=== PATIENT | male | born 1975 | race Caucasian/White ===

== ENCOUNTER 2025-01-19 10:12 | Inpatient (IN) | payer MEDICARE, MEDICAID ==
[~2025-01-19] VITALS: Ht 177.8 cm; Wt 62.6 kg
[2025-01-19] MEDS ORDERED: DULCOLAX5 M1 PO (12:17)
[2025-01-19] MEDS ORDERED: TYLENOL325 M2 PO (12:17)
[2025-01-19] MEDS ORDERED: BUCAPSOL7.5 MG PO (12:18)
[2025-01-19] MEDS ORDERED: PULMICORT0.5 MG/21 NEB (12:18)
[2025-01-19] MEDS ORDERED: CALCITRIOL0.5 MCG PO (12:19)
[2025-01-19] MEDS ORDERED: ZYRTEC10 M2 PO (12:21)
[2025-01-19] MEDS ORDERED: CALCIUM500 M1 PO (12:21)
[2025-01-19] MEDS ORDERED: VITAMIN D325 MC1 PO (12:22)
[2025-01-19] MEDS ORDERED: AUSTEDO XR12 MG PO (12:23)
[2025-01-19] MEDS ORDERED: DOXYCYCLINE50 M2 PO (12:29)
[2025-01-19] MEDS ORDERED: HEARTBURN RELIE20 MG PO (12:30)
[2025-01-19] MEDS ORDERED: FENOFIBRATE MIC67 MG PO (12:30)
[2025-01-19] MEDS ORDERED: ALLERGY RELIE15.8 ML NAS (12:34)
[2025-01-19] MEDS ORDERED: HYDROXYZINE PAM25 M1 PO (12:39)
[2025-01-19] MEDS ORDERED: VASCEPA1 G1 PO (12:39)
[2025-01-19] MEDS ORDERED: Ipratropium Brom3 ML INH (12:40)
[2025-01-19] MEDS ORDERED: LAMICTAL25 MG PO (12:41)
[2025-01-19] MEDS ORDERED: SYNTHROID137 MCG PO (12:41)
[2025-01-19] MEDS ORDERED: ATIVAN0.5 MG PO (12:42)
[2025-01-19] MEDS ORDERED: MAGNESIUM OXID400 MG PO (12:43)
[2025-01-19] MEDS ORDERED: TOPROL XL25 MG PO (12:44)
[2025-01-19] MEDS ORDERED: [UNRECOGNIZED DRUG - OTHER] PO (12:44)
[2025-01-19] MEDS ORDERED: TRILEPTAL600 MG PO (12:45)
[2025-01-19] MEDS ORDERED: LONG ACTING NA120 MG PO (12:46)
[2025-01-19] MEDS ORDERED: SEROQUEL50 MG PO (12:46)
[2025-01-19] MEDS ORDERED: SEROQUEL300 MG PO (12:47)
[2025-01-19] MEDS ORDERED: SEROQUEL400 M1 PO (12:47)
[2025-01-19] MEDS ORDERED: ROSUVASTATIN CA10 MG PO (12:48)
[2025-01-19] MEDS ORDERED: SELSUN BLUE T (12:49)
[2025-01-19] MEDS ORDERED: KENALOG 0.1%80 GM T (12:50)
[2025-01-19] MEDS ORDERED: SEROQUEL XR400 MG PO (12:53)
[2025-01-19] MEDS ORDERED: SEROQUEL XR300 MG PO (12:53)
[2025-01-19] MEDS ORDERED: BUSPAR5 MG PO (12:54)
[2025-01-19] MEDS ORDERED: LORazepam 1 MG TAB PO PRN (13:00)
[2025-01-19] MEDS ORDERED: hydrOXYzine hydrochloride 50 MG/ML VIAL IM PRN (13:00)
[2025-01-19] MEDS ORDERED: Water, Sterile 10 ML VIAL IM PRN (17:50)
[2025-01-19] MEDS ORDERED: BISACODYL 5 MG TAB PO PRN (18:45)
[2025-01-19] MEDS ORDERED: Albuterol Sulf/Ipratropium 3 ML VIAL NEB PRN (18:45)
[2025-01-19] MEDS ORDERED: Pseudoephedrine Hydrochlorid 30 MG TAB PO PRN (18:55)
[2025-01-19] MEDS ORDERED: TRIAMCINOLONE ACETONIDE 0.1% CREAM 15 GM TUBE T PRN (18:55)
[2025-01-19 19:55] LABS: BUN 9 mg/dl (9-23)
[2025-01-19 20:00] VITALS: BP 128/85
[2025-01-19] MEDS ORDERED: ACETAMINOPHEN 325 MG TAB PO PRN (20:00)
[2025-01-19] MEDS ORDERED: MG-AL HYDROXIDE/SIMETICONE 30 ML UDC PO PRN (20:00)
[2025-01-19] MEDS ORDERED: Menthol/Zinc Oxide 4 GM THIN T PRN (20:05)
[2025-01-19] MEDS ORDERED: MED. FROM HOME 1 EACH EA PO SCH ×2 (21:00)
[2025-01-19] MEDS ORDERED: MAGNESIUM OXIDE 400 MG TAB PO SCH (21:00)
[2025-01-19] MEDS ORDERED: LAMOTRIGINE 25 MG TAB PO SCH (21:00)
[2025-01-19] MEDS ORDERED: ATORVASTATIN CALCIUM 20 MG TAB PO SCH (21:00)
[2025-01-19] MEDS ORDERED: FAMOTIDINE 20 MG TAB PO SCH (21:00)
[2025-01-19] MEDS ORDERED: COBENFY PO SCH (21:00)
[2025-01-19] MEDS ORDERED: OXcarbazepine 600 MG TAB PO SCH ×2 (21:00)
[2025-01-19] MEDS ORDERED: BUDESONIDE 0.5 MG AMP NEB SCH (21:00)
[2025-01-19] MEDS ORDERED: POTASSIUM CHLORIDE 20 MEQ TAB PO ONE (21:50)
[2025-01-19] MEDS ORDERED: FLUTICASONE PROPIONATE 100 mcg INHALER INH SCH (22:00)
[2025-01-20 05:58] LABS: BASO # 0.0 10*3/uL (0.0-0.1); BASO % 0.6 % (0.0-1.0); EOS # 1.0 10*3/uL (0.0-0.4); EOS % 14.5 % (1.0-4.0); MEAN CELL VOLUME 85.8 fl (80.0-94.0); MEAN CORPUSCULAR HGB 29.6 pg (27.0-31.0); MEAN PLATELET VOLUME 10.1 fl (9.6-12.3); MONO # 0.7 10*3/uL (0.1-1.0); MONO % 9.9 % (3.0-9.0); NEUT # 3.7 10*3/uL (2.3-7.9); NEUT % 52.2 % (47.0-73.0); NUCLEATED RED BLOOD CELL 0.0 % (0.0-0.0); NUCLEATED RED BLOOD CELL 0.0 10*3/uL (0.0-0.0); PLATELET COUNT AUTOMATED 224 10*3/uL (130-400); RED CELL DISTRI WIDTH 13.3 % (0-14.5)
[2025-01-20 06:22] LABS: BUN 9 mg/dl (9-23); LDL CHOLESTEROL 59 mg/dL (9-159); SGPT/ALT 11 U/L (5-49)
[2025-01-20 07:05] LABS: VITAMIN D, 25-HYDROXY 52.3 ng/mL (30-100)
[2025-01-20 08:00] VITALS: BP 106/68
[2025-01-20] MEDS ORDERED: Vitamin D 1,000 IU TAB (25 MCG) PO SCH (09:00)
[2025-01-20] MEDS ORDERED: CALCITRIOL 0.25 MCG CAP PO SCH (09:00)
[2025-01-20] MEDS ORDERED: LAMOTRIGINE 25 MG TAB PO SCH (09:00)
[2025-01-20] MEDS ORDERED: METOPROLOL SUCCINATE XR 25 MG TAB PO SCH (09:00)
[2025-01-20] MEDS ORDERED: MULTIVITAMIN 1 TAB TAB PO SCH (09:00)
[2025-01-20] MEDS ORDERED: CALCIUM (OSCAL) 500MG PO SCH (09:00)
[2025-01-20] MEDS ORDERED: FENOFIBRATE 145 MG TAB PO SCH (10:00)
[2025-01-20] MEDS ORDERED: SELENIUM SULFIDE T SCH (10:00)
[2025-01-20] MEDS ORDERED: LACTULOSE 20 GM/30 ML UDC PO ONE (14:10)
[2025-01-20 20:00] VITALS: BP 128/63
[2025-01-21 08:40] VITALS: BP 127/88
[2025-01-21 20:00] VITALS: BP 101/50
[2025-01-21] MEDS ORDERED: Mirtazapine 15 MG TAB PO SCH (21:00)
[2025-01-22 07:49] VITALS: BP 108/74
[2025-01-22 08:15] LABS: BILIRUBIN Negative (Negative); BLOOD Negative (Negative); CLARITY Cloudy (Clear); COLOR Yellow (Yellow); KETONE Negative (Negative); LEUKO ESTERASE Negative (Negative); NITRITE Negative (Negative); PH 7.5 (4.5-8.0); SPECIFIC GRAVITY 1.015 (1.001-1.030); UROBILINOGEN 0.2 E.U./dl (0.0-1.0)
[2025-01-22 08:30] LABS: BACTERIA 2+; RBC 0-2 rbc/hpf (0-2)
[2025-01-22 08:31] LABS: EPITHELIAL CELLS 0-2; HYALINE CAST 0-2
[2025-01-22] MEDS ORDERED: CALCITRIOL 0.25 MCG CAP PO SCH (09:00)
[2025-01-22 20:00] VITALS: BP 125/66
[2025-01-23 08:00] VITALS: BP 155/79
[2025-01-23 13:49] VITALS: BP 128/96
[2025-01-23 20:00] VITALS: BP 153/77
[2025-01-23] MEDS ORDERED: MED. FROM HOME 1 EACH EA PO SCH (21:00)
[2025-01-24 08:00] VITALS: BP 154/90
[2025-01-24 08:02] LABS: MEAN CELL VOLUME 89.0 fl (80.0-94.0); MEAN CORPUSCULAR HGB 29.3 pg (27.0-31.0); MEAN PLATELET VOLUME 10.1 fl (9.6-12.3); NUCLEATED RED BLOOD CELL 0.0 % (0.0-0.0); NUCLEATED RED BLOOD CELL 0.0 10*3/uL (0.0-0.0); PLATELET COUNT AUTOMATED 331 10*3/uL (130-400); RED CELL DISTRI WIDTH 13.3 % (0-14.5)
[2025-01-24] MEDS ORDERED: Acetaminophen/Hydrocodone 5 MG/325 MG TABLET PO PRN (08:25)
[2025-01-24 08:30] LABS: MANUAL DIFF REFLEX YES
[2025-01-24 08:43] LABS: BUN 9 mg/dl (9-23); SGPT/ALT 32 U/L (5-49)
[2025-01-24] MEDS ORDERED: METOPROLOL SUCCINATE XR 50 MG TAB PO SCH ×2 (09:00→21:00)
[2025-01-24 09:02] LABS: BASOPHILS 1 % (0-1); PLATELET SUFFICIENCY NORMAL (NORMAL)
[2025-01-24 10:19] VITALS: BP 143/84
[2025-01-24] MEDS ORDERED: LACTULOSE 20 GM/30 ML UDC PO ONE (11:40)
[2025-01-24 20:00] VITALS: BP 110/60
[2025-01-25] MEDS ORDERED: MIRTAZAPINE15 M2 PO (06:30)
[2025-01-25 07:47] LABS: MEAN CELL VOLUME 86.6 fl (80.0-94.0); MEAN CORPUSCULAR HGB 29.5 pg (27.0-31.0); MEAN PLATELET VOLUME 10.1 fl (9.6-12.3); NUCLEATED RED BLOOD CELL 0.0 % (0.0-0.0); NUCLEATED RED BLOOD CELL 0.0 10*3/uL (0.0-0.0); PLATELET COUNT AUTOMATED 365 10*3/uL (130-400); RED CELL DISTRI WIDTH 13.5 % (0-14.5)
[2025-01-25 07:48] LABS: MANUAL DIFF REFLEX YES
[2025-01-25 08:00] VITALS: BP 132/86
[2025-01-25 08:07] LABS: SGPT/ALT 30 U/L (5-49)
[2025-01-25 08:10] LABS: BUN 24 mg/dl (9-23)
[2025-01-25 08:19] LABS: BASOPHILS 1 % (0-1); PLATELET SUFFICIENCY NORMAL (NORMAL)
[2025-01-25 09:14] LABS: BILIRUBIN Negative (Negative); BLOOD Trace-Intact (Negative); CLARITY Cloudy (Clear); COLOR Yellow (Yellow); KETONE Trace (Negative); LEUKO ESTERASE Trace (Negative); NITRITE Negative (Negative); PH 6.0 (4.5-8.0); SPECIFIC GRAVITY 1.020 (1.001-1.030); UROBILINOGEN 0.2 E.U./dl (0.0-1.0)
[2025-01-25 09:30] LABS: BACTERIA 2+
[2025-01-25] MEDS ORDERED: METOPROLOL SUCC50 M1 PO (10:30)
[2025-01-25] MEDS ORDERED: HOMEMED PO ×2 (11:55)
== END 2025-01-25 12:20 | disposition home or self-care (01) | DRG 885 ==
LOC: 3N 10:12
PROVIDERS: Student in an Organized Health Care Education/Training Program; ADMIT Psychiatry & Neurology Psychiatry; ATTEND Psychiatry & Neurology Psychiatry
PROC: GZHZZZZ Group Psychotherapy (ICD-10-PCS; principal; 2025-01-21)
PROC: GZ56ZZZ Individual Psychotherapy, Supportive (ICD-10-PCS; 2025-01-21)
DX: F25.9 Schizoaffective disorder, unspecified (principal); F71 Moderate intellectual disabilities; Q87.2 Congenital malformation syndromes predominantly involving limbs; E72.20 Disorder of urea cycle metabolism, unspecified; R65.10 Systemic inflammatory response syndrome (SIRS) of non-infectious origin without acute organ dysfunction; G24.01 Drug induced subacute dyskinesia; K21.9 Gastro-esophageal reflux disease without esophagitis; D64.9 Anemia, unspecified; E89.0 Postprocedural hypothyroidism; I10 Essential (primary) hypertension; E87.6 Hypokalemia; E78.2 Mixed hyperlipidemia; F84.9 Pervasive developmental disorder, unspecified; R00.0 Tachycardia, unspecified; E83.52 Hypercalcemia; F41.9 Anxiety disorder, unspecified; J45.909 Unspecified asthma, uncomplicated; G40.909 Epilepsy, unspecified, not intractable, without status epilepticus; Z81.8 Family history of other mental and behavioral disorders; Z88.0 Allergy status to penicillin; Z88.8 Allergy status to other drugs, medicaments and biological substances; Z91.09 Other allergy status, other than to drugs and biological substances; Z79.899 Other long term (current) drug therapy; Z79.01 Long term (current) use of anticoagulants; Z79.2 Long term (current) use of antibiotics